=== PATIENT | female | born 1950 | race Caucasian/White ===

== ENCOUNTER 2017-10-17 18:30 | Emergency (ER) | payer OTHER, BC ==
[~2017-10-17] VITALS: Ht 154.9 cm; Wt 52.2 kg
--- NOTE | ~2017-10-17 | EKG ---
[place] [address] [facility] [employer] [place] [address] ELECTROCARDIOGRAM REPORT Name: KASSIE CLARK Room #: DEP [facility]#: [id number] Admission: 10/17/17 Attend Phys: Discharge: 10/17/17 Date of : 50 Report #: [id number] THIS REPORT FOR: //name// [facility] ED Test Date: 2017-10-17 Test Time: 19:07:57 Pat Name: KASSIE CLARK Department: Room: Gender: F Folder Hand: sherman : 1950 Requested By: Donald Quiñones Order Number: [id number] MD: Ki Mitchell Measurements Intervals [place] Rate: 92 P: 81 AK: 208 QRS: 48 QRSD: 83 T: 53 QT: 360 QTc: 446 Interpretive Statements Sinus rhythm Borderline prolonged AK interval Borderline ST depression, lateral leads No previous ECG available for comparison Electronically Signed On 10-19-2017 13:59:37 CDT by Ki Mitchell [email or web address] <ELECTRONICALLY SIGNED> By: Ki Mitchell MD, [facility] 10/19/17 1359 [id number] 06 Ki Mitchell MD, FACC /EPI
[2017-10-17] MEDS ORDERED: LISINOPRIL20 MG PO (19:08)
[2017-10-17] MEDS ORDERED: PRAVACHOL40 MG PO (19:08)
[2017-10-17] MEDS ORDERED: ZOLOFT50 MG PO (19:09)
[2017-10-17] MEDS ORDERED: VITAMIN D2000 UNIT PO (19:09)
[2017-10-17] MEDS ORDERED: CLONIPINE PO (19:09)
[2017-10-17] MEDS ORDERED: MULTIVITAMINS1 EAC7 PO (19:10)
[2017-10-17] MEDS ORDERED: GLUCOSAMINE HC500 MG PO (19:10)
[2017-10-17] MEDS ORDERED: ACCUNEB SO1.25 MG/1 INH (19:10)
[2017-10-17] MEDS ORDERED: ZYRTEC10 M5 PO (19:10)
[2017-10-17] MEDS ORDERED: ACETAMINOPHEN-1 EAC1 PO (19:10)
[2017-10-17] MEDS ORDERED: CO Q-10100 MG PO (19:10)
[2017-10-17] MEDS ORDERED: FLONASE 0.05%50 MCG NASAL (19:11)
[2017-10-17 19:17] LABS: ABSOLUTE NEUTROPHILS 9.4 thou/uL (1.4-8.2); BASOPHILS 0.4 % (0.0-2.0); EOSINOPHILS 0.3 % (0.0-3.0); HEMATOCRIT 38.7 % (37.0-47.0); HEMOGLOBIN 12.9 gm/dL (12.0-15.0); LYMPHOCYTES 12.4 % (24.0-44.0); MCH 30.7 pg (26.0-34.0); MCHC 33.4 g/dL (28.0-37.0); MCV 91.9 fL (80.0-100.0); MONOCYTES 4.8 % (1.0-8.0); PLATELET COUNT 182 thou/uL (150-400); POLYS 82.1 % (36.0-66.0); RBC 4.21 mil/uL (4.20-5.00); RDW 14.9 % (10.5-14.5); WBC 11.4 thou/uL (4.0-11.0)
[2017-10-17 19:23] LABS: ANION GAP 12 mmol/L (7-16); BUN 15 mg/dL (7-18); CALCIUM 9.8 mg/dL (8.5-10.1); CHLORIDE 99 mmol/L (98-107); CO2 22 mmol/L (21-32); GLUCOSE 197 mg/dL (74-106); POTASSIUM 3.3 mmol/L (3.5-5.1); SODIUM 133 mmol/L (136-145)
[2017-10-17 19:32] LABS: ALBUMIN 3.7 g/dL (3.4-5.0); LIPASE 147 U/L (73-393); SGOT 19 U/L (15-37); SGPT 29 U/L (30-65); TOTAL BILIRUBIN 0.4 mg/dL (<0.1-1.0); TOTAL PROTEIN 7.1 g/dL (6.4-8.2); TROPONIN-I <0.06 ng/mL (<0.06)
[2017-10-17] MEDS ORDERED: CURCUMIN1 GM PO (19:44)
[2017-10-17] MEDS ORDERED: FISH OIL 1,001000 M2 PO (19:44)
[2017-10-17] MEDS ORDERED: ZOFRAN ODT4 MG PO (20:49)
[2017-10-17] MEDS ORDERED: LOPERAMIDE 2 MG2 M1 PO (20:50)
[2017-10-17 20:58] VITALS: BP 110/59
== END 2017-10-17 21:18 | disposition home or self-care (01) ==
LOC: ER 18:30
PROVIDERS: Physician Assistant
DX: E86.0 Dehydration (principal); R19.7 Diarrhea, unspecified; E87.6 Hypokalemia; F41.9 Anxiety disorder, unspecified; R11.0 Nausea; R25.1 Tremor, unspecified; I10 Essential (primary) hypertension; Z90.10 Acquired absence of unspecified breast and nipple; Z85.3 Personal history of malignant neoplasm of breast